=== PATIENT | female | born 1990 | race Caucasian/White ===

== ENCOUNTER 2018-09-10 14:29 | Outpatient (CLI) | payer BC | END 2018-09-10 17:15 | disposition home or self-care (01) | LOC: LDOP 14:29 | PROVIDERS: ATTEND Obstetrics & Gynecology | DX: O26.832 Pregnancy related renal disease, second trimester (principal); N13.30 Unspecified hydronephrosis; Z3A.22 22 weeks gestation of pregnancy | CPT/HCPCS: 76770; 81001; 82360; 85025; 87086; 88300; 99211; J1885; G0463 ==

== ENCOUNTER 2019-01-03 05:33 | Inpatient (IN) | payer BC ==
[~2019-01-03] VITALS: Ht 162.6 cm; Wt 57.3 kg
[2019-01-03 05:41] VITALS: BP 121/67
[2019-01-03] MEDS ORDERED: D5%-LACTATED RINGERS 1,000 ML IV SCH (06:47)
[2019-01-03] MEDS ORDERED: OXYTOCIN 30U/ 0.9% NaCL 500ML 500 ML IV ONE (06:47)
[2019-01-03] MEDS ORDERED: LIDOCAINE 1%, 20ML ONE (06:55)
[2019-01-03] MEDS ORDERED: FENTANYL PF 100 MCG/2ML ONE ×3 (06:55→09:28)
[2019-01-03] MEDS ORDERED: NEWBORN KIT ONE (06:55)
[2019-01-03] MEDS ORDERED: MISOPROSTOL 200 MCG TABLET ONE (06:56)
[2019-01-03] MEDS ORDERED: OXYTOCIN 30U/ 0.9% NaCL 500ML 500 ML ONE (06:56)
[2019-01-03] MEDS ORDERED: TERBUTALINE 1 MG/ML, 1ML SQ PRN (07:00)
[2019-01-03] MEDS ORDERED: FENTANYL PF 100 MCG/2ML IV PRN (07:00)
[2019-01-03] MEDS ORDERED: ONDANSETRON 2MG/ML, 2ML IVPush PRN (07:00)
[2019-01-03] MEDS ORDERED: CALCIUM CARBONATE 500 MG TAB.CHEW PO PRN (07:00)
[2019-01-03] MEDS ORDERED: TERBUTALINE 1 MG/ML, 1ML IVPush PRN (07:00)
[2019-01-03] MEDS: FENTANYL PF 100 MCG/2ML IVPush PRN ×2 (07:01→08:25)
[2019-01-03] MEDS: LACTATED RINGERS 1,000 ML IV SCH ×2 (07:01→08:28)
[2019-01-03 07:38] LABS: BASOPHILS # (AUTO) 0.03 x10^3/uL (0-0.1); BASOPHILS % (AUTO) 0 % (0-1); EOSINOPHILS # (AUTO) 0.02 x10^3/uL (0-0.4); EOSINOPHILS % (AUTO) 0 % (1-7); LYMPHOCYTES # (AUTO) 2.07 x10^3/uL (1-3.4); LYMPHOCYTES % (AUTO) 25 % (22-44); MD SCAN; MEAN CORPUSCULAR HEMOGLOBIN 27.3 pg (27.0-34.8); MEAN CORPUSCULAR VOLUME 85.3 fL (80-100); MEAN PLATELET VOLUME 8.8 fL (7.4-10.4); MONOCYTES # (AUTO) 0.54 x10^3/uL (0.2-0.8); MONOCYTES % (AUTO) 6 % (2-9); NEUTROPHILS # (AUTO) 5.81 x10^3/uL (1.8-6.8); NEUTROPHILS % (AUTO) 69 % (42-75); PLATELET COUNT 218 x10^3/uL (130-400); RED BLOOD COUNT 4.27 x10^6/uL (3.82-5.3)
[2019-01-03] MEDS ORDERED: LACTATED RINGERS 1,000 ML IV SCH (09:39)
[2019-01-03] MEDS ORDERED: FENTANYL/BUPIV./NS/PF 250 ML EPIDCONT SCH (09:39)
[2019-01-03] MEDS ORDERED: FENTANYL/BUPIV./NS/PF 0 ML EPIDCONT ONE (09:46)
[2019-01-03] MEDS ORDERED: BUPIVACAINE 0.25% ONE (09:47)
[2019-01-03] MEDS ORDERED: EPHEDRINE 50 MG/ML, 1ML IVPush PRN (10:00)
[2019-01-03] MEDS ORDERED: FENTANYL PF 500 MCG, BUPIVACAINE/PF 0.5%, 30ML 62.5 ML in SODIUM CHLORIDE 0.9% 177.5 ML EPIDCONT SCH (10:00)
[2019-01-03] MEDS ORDERED: LACTATED RINGERS 1,000 ML IVBOLUS PRN (10:00)
[2019-01-03] MEDS: OXYTOCIN 30U/ 0.9% NaCL 500ML 500 ML IV SCH (18:03)
[2019-01-03] MEDS ORDERED: ONDANSETRON 2MG/ML, 2ML IV PRN (18:30)
[2019-01-03] MEDS ORDERED: MISOPROSTOL 200 MCG TABLET PR PRN (18:30)
[2019-01-03] MEDS ORDERED: DOCUSATE 100 MG CAPSULE PO PRN (18:30)
[2019-01-03] MEDS ORDERED: ACETAMINOPHEN 325 MG TABLET PO PRN (18:30)
[2019-01-03] MEDS ORDERED: SIMETHICONE 80 MG CHEW TAB PO PRN (18:30)
[2019-01-03] MEDS ORDERED: IBUPROFEN 600 MG TABLET ONE (18:37)
[2019-01-03] MEDS: IBUPROFEN 600 MG TABLET PO PRN (18:38)
[2019-01-03 20:25] VITALS: BP 103/69
[2019-01-03] MEDS: OXYcodone/APAP 5/325MG TABLET PO PRN (22:42)
[2019-01-04 00:15] VITALS: BP 95/59
[2019-01-04 01:23] LABS: BASOPHILS # (AUTO) 0.03 x10^3/uL (0-0.1); BASOPHILS % (AUTO) 0 % (0-1); EOSINOPHILS # (AUTO) 0.01 x10^3/uL (0-0.4); EOSINOPHILS % (AUTO) 0 % (1-7); LYMPHOCYTES # (AUTO) 1.79 x10^3/uL (1-3.4); LYMPHOCYTES % (AUTO) 16 % (22-44); MD NO; MEAN CORPUSCULAR HEMOGLOBIN 28.1 pg (27.0-34.8); MEAN CORPUSCULAR HGB CONC 32.5 g/dL (32.4-35.8); MEAN CORPUSCULAR VOLUME 86.3 fL (80-100); MEAN PLATELET VOLUME 8.3 fL (7.4-10.4); MONOCYTES % (AUTO) 4 % (2-9); NEUTROPHILS # (AUTO) 8.85 x10^3/uL (1.8-6.8); NEUTROPHILS % (AUTO) 80 % (42-75); PLATELET COUNT 186 x10^3/uL (130-400); RED BLOOD COUNT 3.43 x10^6/uL (3.82-5.3); RED CELL DISTRIBUTION WIDTH 15.6 % (9.6-15.2)
[2019-01-04] MEDS: IBUPROFEN 600 MG TABLET PO PRN ×4 (02:18→22:36)
[2019-01-04] MEDS: OXYTOCIN 30U/ 0.9% NaCL 500ML 500 ML IV SCH ×2 (04:03→14:03)
[2019-01-04 05:00] VITALS: BP 96/61
[2019-01-04] MEDS: OXYcodone/APAP 5/325MG TABLET PO PRN ×3 (05:12→16:17)
[2019-01-04 07:41] VITALS: BP 102/66
[2019-01-04] MEDS: PRENATAL VIT/IRON/FA 1 EACH TABLET PO SCH (09:00)
[2019-01-04 12:00] VITALS: BP 105/64
[2019-01-04 20:00] VITALS: BP 111/69
[2019-01-05] MEDS: OXYTOCIN 30U/ 0.9% NaCL 500ML 500 ML IV SCH (00:03)
[2019-01-05] MEDS: OXYcodone/APAP 5/325MG TABLET PO PRN ×2 (03:07→07:52)
[2019-01-05 07:30] VITALS: BP 107/73
[2019-01-05] MEDS: PRENATAL VIT/IRON/FA 1 EACH TABLET PO SCH (07:52)
[2019-01-05] MEDS: IBUPROFEN 600 MG TABLET PO PRN (07:52)
[2019-01-05] MEDS ORDERED: OXYC-302 PO (10:58)
[2019-01-05] MEDS ORDERED: IBUP-1222 PO (10:59)
[2019-01-05] MEDS ORDERED: DOCU-131 PO (11:00)
[2019-01-05] MEDS ORDERED: FERR325T23 PO (11:01)
== END 2019-01-05 14:45 | disposition home or self-care (01) | DRG 807 ==
LOC: LDOP 05:33 → LDIP 06:57 → 2NW 19:50
PROVIDERS: ADMIT Obstetrics & Gynecology; ATTEND Obstetrics & Gynecology
PROC: 10E0XZZ Delivery of Products of Conception, External Approach (ICD-10-PCS; principal; 2019-01-03)
PROC: 0KQM0ZZ Repair Perineum Muscle, Open Approach (ICD-10-PCS; 2019-01-03)
PROC: 3E0R3BZ Introduction of Anesthetic Agent into Spinal Canal, Percutaneous Approach (ICD-10-PCS; 2019-01-03)
PROC: 00HU33Z Insertion of Infusion Device into Spinal Canal, Percutaneous Approach (ICD-10-PCS; 2019-01-03)
PROC: 10907ZC Drainage of Amniotic Fluid, Therapeutic from Products of Conception, Via Natural or Artificial Opening (ICD-10-PCS; 2019-01-03)
DX: O69.81X0 Labor and delivery complicated by cord around neck, without compression, not applicable or unspecified (principal); Z37.0 Single live birth; O70.1 Second degree perineal laceration during delivery; O77.0 Labor and delivery complicated by meconium in amniotic fluid; Z3A.38 38 weeks gestation of pregnancy
CPT/HCPCS: 36415; 87806; S0020; 85025; 86850; 86900; G0378; J3010; G0475; J7050; J7120